=== PATIENT | male | born 1995 | race American Indian/Alaskan Native ===

== ENCOUNTER 2019-06-09 15:51 | Emergency (ER) | payer MEDICAID ==
--- NOTE | 2019-06-09 16:24 | Event Note ---
ED Screening Note ED Screening Note: This initial assessment/diagnostic orders/clinical plan/treatment(s) is/are subject to change based on patients health status, clinical progression and re- assessment by fellow clinical providers in the ED. Further treatment and workup at subsequent clinical providers discretion. Patient/guardian urged not to elope from the ED as their condition may be serious if not clinically assessed and managed. Initial orders include: 23yo males states that he feels like killing people that he lives around for 2 months. He states that he is currently on medication for Bipolar disorder, Schizoaffrective disorder and ADHD. He states that he saw his psych doctor 2 months ago and did not report this problem.
[2019-06-09 16:48] LABS: Basophils % (Auto) 0.9 % (0.0-1.8); Eosinophils # (Auto) 0.3 K/mm3 (0.0-0.4); Eosinophils % (Auto) 7.5 % (0.0-4.3); Hematocrit 42.3 % (35.5-45.6); Hemoglobin 13.8 gm/dl (11.8-15.2); Lymphocytes # (Auto) 1.1 K/mm3 (1.2-5.4); Lymphocytes % (Auto) 24.4 % (13.4-35.0); Mean Corpuscular HGB Conc 33 % (32-34); Mean Corpuscular Volume 88 fl (84-94); Monocytes # (Auto) 0.6 K/mm3 (0.0-0.8); Monocytes % (Auto) 13.9 % (0.0-7.3); Platelet Count 265 K/mm3 (140-440); Red Blood Count 4.82 M/mm3 (3.65-5.03); Red Cell Distribution Width 12.2 % (13.2-15.2)
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
[2019-06-09 17:05] LABS: Alanine Aminotransferase 21 units/L (7-56); Albumin 4.5 g/dL (3.9-5); BUN/Creatinine Ratio 14; Blood Urea Nitrogen 10 mg/dL (9-20); Calcium 8.9 mg/dL (8.4-10.2); Hemolysis Index 5
[2019-06-09 17:05] LABS: Bilirubin,Urine NEG (Negative); Blood,Urine NEG (Negative); Color,Urine Yellow (Yellow); Mucus,Urine 3+ /HPF
[2019-06-09 17:09] LABS: Amphetamine Screen,Urine PRESUMPTIVE NEGATIVE; Benzodiazepines Screen,Urine PRESUMPTIVE NEGATIVE; Cannabinoid Screen,Urine PRESUMPTIVE NEGATIVE; Cocaine Screen,Urine PRESUMPTIVE NEGATIVE; Methadone Screen,Urine PRESUMPTIVE NEGATIVE; Opiate Screen,Urine PRESUMPTIVE NEGATIVE
[2019-06-09 18:15] LABS: Basophils # (Auto) 0.1 K/mm3 (0.0-0.1); Basophils % (Auto) 1.3 % (0.0-1.8); Eosinophils # (Auto) 0.3 K/mm3 (0.0-0.4); Eosinophils % (Auto) 6.8 % (0.0-4.3); Hematocrit 42.5 % (35.5-45.6); Hemoglobin 14.2 gm/dl (11.8-15.2); Lymphocytes % (Auto) 21.9 % (13.4-35.0); Mean Corpuscular HGB Conc 34 % (32-34); Mean Corpuscular Volume 87 fl (84-94); Monocytes # (Auto) 0.6 K/mm3 (0.0-0.8); Monocytes % (Auto) 13.1 % (0.0-7.3); Platelet Count 294 K/mm3 (140-440); Red Blood Count 4.88 M/mm3 (3.65-5.03); Red Cell Distribution Width 12.4 % (13.2-15.2)
[2019-06-09 18:38] LABS: BUN/Creatinine Ratio 14; Blood Urea Nitrogen 10 mg/dL (9-20); Hemolysis Index 423
[2019-06-10] MEDS ORDERED: DIVALPROEX ER 500 MG TAB PO SCH (10:00)
[2019-06-10 12:13] LABS: Alanine Aminotransferase 19 units/L (7-56); Albumin 4.9 g/dL (3.9-5); BUN/Creatinine Ratio 11; Blood Urea Nitrogen 9 mg/dL (9-20); Calcium 9.3 mg/dL (8.4-10.2); Hemolysis Index 19
--- NOTE | 2019-06-10 14:01 | Consultation ---
History of Present Illness - Reason for Consult Consult date: 06/10/19 Reason for consult: Mental Health Evaluation Requesting physician: JOHN LEONARD - Chief Complaint Chief complaint: "I was upset with a person" - History of Present Psychiatric Illness 23 y.o. AA male who presented to the ER for HI's. This patient is known to me. Today the patient was calm and cooperative during the assessment. He stated that he felt like another occupant was being rude to him, so he gestured something about wanting to hurt that person. He stated that he was upset because he isn't a negative person. He is adamant that he isn't homicidal. He stated that he is compliant with is biweekly Haldol injection he receive from [facility]. He denies abuse at his snf when asked. He denies SI/HI's and AVH's. He denies a poor appetite and erratic sleep. He denies recreational drug use and alcohol consumption (etoh). Medications and Allergies Allergies Allergy/AdvReac Type Severity Reaction Status Date / Time egg Allergy Severe Anaphylaxis Verified 06/09/19 16:20 milk Allergy Severe Anaphylaxis Verified 06/09/19 16:20 peanut Allergy Severe Anaphylaxis Verified 06/09/19 16:20 shellfish derived Allergy Severe Anaphylaxis Verified 06/09/19 16:20 wheat Allergy Severe Angioedema Verified 06/09/19 16:20 Yeast Allergy Severe Anaphylaxis Verified 06/09/19 16:20 Fish Containing Products Allergy Anaphylaxis Verified 06/09/19 16:20 pollen extracts Allergy Shortness Verified 06/09/19 16:20 of Breath Home Medications Medication Instructions Recorded Confirmed Last Taken Type Divalproex ER [DepaKOTE ER] 500 mg PO QDAY 06/09/19 06/09/19 Unknown History diphenhydrAMINE [Benadryl CAP] 50 mg PO HS 06/09/19 06/09/19 Unknown History Active Meds: Active Medications Diphenhydramine HCl (Benadryl) 50 mg PO HS TO Divalproex Sodium (Depakote Er) 500 mg PO BID TO Past psychiatric history - Past Medical History Past Medical History: No medical history Past Surgical History: No surgical history - past Psychiatric treatment and history psychiatric treatment history: Several inpatient psy settings. Denies a fam psy hx. - Social History Social history: other (Reside at a snf) Mental Status Exam - Vital signs Last Vital Signs Temp 98.1 F 06/10/19 08:20 Pulse 83 06/10/19 08:20 Resp 18 06/10/19 08:20 BP 109/65 06/10/19 08:20 Pulse Ox 97 06/10/19 08:20 - Exam Narrative exam: MSE: Appearance: calm, cooperative Behavior: regular eye contact Speech: regular rate and tone Mood: "okay" Affect: congruent to mood Thought Process: circumstantial Thought Content: denies SI/HI's and AVH's Motor Activity: sitting up in bed Cognition: A/O x3 Insight: fair Judgment: variable to fair Results Result Diagrams: 06/09/19 17:54 06/10/19 10:37 Abnormal lab results 06/09/19 06/09/19 06/09/19 Range/Units 16:27 16:27 16:35 RDW 12.2 L (13.2-15.2) % [place] % (Auto) 13.9 H (0.0-7.3) % Eos % (Auto) 7.5 H (0.0-4.3) % Lymph # 1.1 L (1.2-5.4) K/mm3 Sodium (137-145) mmol/L Potassium (3.6-5.0) mmol/L Chloride (98-107) mmol/L Carbon Dioxide (22-30) mmol/L Creatinine (0.8-1.5) mg/dL Urine WBC (Auto) (0.0-6.0) /HPF Salicylates < 0.3 L (2.8-20.0) mg/dL Acetaminophen < 5.0 L (10.0-30.0) ug/mL Valproic Acid (50-100) ug/mL 06/09/19 06/09/19 06/09/19 Range/Units 16:36 17:54 17:54 RDW (13.2-15.2) % [place] % (Auto) (0.0-7.3) % Eos % (Auto) (0.0-4.3) % Lymph # (1.2-5.4) K/mm3 Sodium 133 L (137-145) mmol/L Potassium (3.6-5.0) mmol/L Chloride 97.1 L (98-107) mmol/L Carbon Dioxide 20 L (22-30) mmol/L Creatinine 0.7 L (0.8-1.5) mg/dL Urine WBC (Auto) (0.0-6.0) /HPF Salicylates < 0.3 L (2.8-20.0) mg/dL Acetaminophen < 5.0 L (10.0-30.0) ug/mL Valproic Acid (50-100) ug/mL 06/09/19 06/09/19 06/09/19 Range/Units 17:54 17:54 Unknown RDW 12.4 L (13.2-15.2) % [place] % (Auto) 13.1 H (0.0-7.3) % Eos % (Auto) 6.8 H (0.0-4.3) % Lymph # 1.0 L (1.2-5.4) K/mm3 Sodium 132 L (137-145) mmol/L Potassium 5.1 H D (3.6-5.0) mmol/L Chloride 95.0 L (98-107) mmol/L Carbon Dioxide 21 L (22-30) mmol/L Creatinine 0.7 L (0.8-1.5) mg/dL Urine WBC (Auto) 14.0 H (0.0-6.0) /HPF Salicylates (2.8-20.0) mg/dL Acetaminophen (10.0-30.0) ug/mL Valproic Acid (50-100) ug/mL 06/10/19 Range/Units 10:37 RDW (13.2-15.2) % [place] % (Auto) (0.0-7.3) % Eos % (Auto) (0.0-4.3) % Lymph # (1.2-5.4) K/mm3 Sodium (137-145) mmol/L Potassium (3.6-5.0) mmol/L Chloride (98-107) mmol/L Carbon Dioxide (22-30) mmol/L Creatinine (0.8-1.5) mg/dL Urine WBC (Auto) (0.0-6.0) /HPF Salicylates (2.8-20.0) mg/dL Acetaminophen (10.0-30.0) ug/mL Valproic Acid < 2.8 L (50-100) ug/mL All other labs normal. Assessment and Plan Assessment and plan: Impression: R/O Mood DO. Hx of Schizophrenia. Today the patient was calm and cooperative dung the assessment. Recommendation/Plan: Reevaluate the patient's 1013 in 24 hours. The patient receive the Biweekly Haldol injection. Start Depakote 500 mg PO BID for mood. Dispo: If the patient's 1013 is rescinded in 24 hours, he can follow up at [facility] for outpatient psy services. Staffed with Dr Cate Pena.
[2019-06-10] MEDS: DIVALPROEX ER 500 MG TAB PO SCH ×2 (14:52→21:58)
[2019-06-10] MEDS ORDERED: diphenhydrAMINE 25 MG CAP PO SCH (22:00)
[2019-06-11] MEDS: DIVALPROEX ER 500 MG TAB PO SCH (09:58)
--- NOTE | 2019-06-11 10:57 | Progress Note ---
Subjective - Reason for Consult Consult date: 06/11/19 Reason for consult: Psychiatry Follow-up - Chief Complaint Chief complaint: "I know better" 23 y.o. AA male who presented to the ER for HI's. This patient is known to me. Today the patient was calm and cooperative during the assessment. Per collateral information from Aydin Davis at [phone], he stated that the patient told him something about hurting another resident. He could not tell me the reason why the patient was upset at the time. He stated that he would like the patient to be placed at another residential. The patient is requesting placement somewhere else as well. The patient stated, "I will make better decisions next time." He is adamant that he stated being homicidal because he was upset prior to coming to the ER. The patient denies SI/HI's and AVH's. He denies any side e ffects fo his medication. The patient has been pleasant since his arrival to the ER. Mental Status Exam - Vital signs Last Vital Signs Temp 98.1 F 06/11/19 08:05 Pulse 93 H 06/11/19 08:05 Resp 18 06/11/19 08:05 BP 110/61 06/11/19 08:05 Pulse Ox 97 06/11/19 08:05 - Exam Narrative exam: MSE: Appearance: calm, cooperative Behavior: regular eye contact Speech: regular rate and tone Mood: "okay" Affect: congruent to mood Thought Process: logical Thought Content: denies SI/HI's and AVH's Motor Activity: sitting up in bed Cognition: A/O x3 Insight: fair Judgment: appropriate Assessment and Plan Impression: R/O Mood DO. Hx of Schizophrenia. Today the patient was calm and cooperative dung the assessment. The patient is no threat to others. Recommendation/Plan: Rescind 1013. Continue Depakote 500 mg PO BID for mood. The patient receive the biweekly Haldol injection. Case Mgmt involvement, the patient may need assistance with placement. Psy sign off. Dispo: The patient can follow up with [facility] for outpatient psy services. Staffed with Dr Cate Pean.
[2019-06-11 14:44] VITALS: BP 92/55
== END 2019-06-11 17:38 | disposition home or self-care (01) ==
LOC: ED 15:51
DX: F20.9 Schizophrenia, unspecified (principal); R45.850 Homicidal ideations; Z91.012 Allergy to eggs; Z91.011 Allergy to milk products; Z91.010 Allergy to peanuts; Z91.013 Allergy to seafood; Z91.048 Other nonmedicinal substance allergy status; F31.9 Bipolar disorder, unspecified; F90.9 Attention-deficit hyperactivity disorder, unspecified type
CPT/HCPCS: 36415; 80048; 80053; 80164; 80307; 80320; 81001; 82150; 82962; 83690; 85025; 87086; G0480

== ENCOUNTER 2020-03-09 12:30 | Emergency (ER) | payer MEDICAID ==
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
== END 2020-03-09 14:00 ==
LOC: ED 12:30
DX: R45.851 Suicidal ideations (principal); R45.850 Homicidal ideations; F25.0 Schizoaffective disorder, bipolar type; F90.9 Attention-deficit hyperactivity disorder, unspecified type; Z79.899 Other long term (current) drug therapy; Z91.013 Allergy to seafood; Z91.010 Allergy to peanuts; Z91.011 Allergy to milk products; Z91.012 Allergy to eggs; Z88.8 Allergy status to other drugs, medicaments and biological substances
CPT/HCPCS: 99282; 99283